=== PATIENT | female | born 1965 | race Hispanic/Latino ===

== ENCOUNTER → 2018-04-02 | Outpatient (CLI) | payer MEDICAID ==
[~2018-04-02] MED LIST: CYCL10 PO; DULO20 PO; HYDR-4068 PO; TRAM50TA4 PO; TRAZ-185 PO
== END | disposition home or self-care (01) ==
LOC: RAH 09:00
PROVIDERS: ATTEND Internal Medicine Gastroenterology
DX: B18.2 Chronic viral hepatitis C (principal); Z90.49 Acquired absence of other specified parts of digestive tract
CPT/HCPCS: 76700; 93975

== ENCOUNTER 2018-10-11 02:49 | Emergency (ER) | payer MEDICAID | END 2018-10-11 05:15 | disposition home or self-care (01) | LOC: EDH 02:49 | DX: S09.90XA Unspecified injury of head, initial encounter (principal); M06.9 Rheumatoid arthritis, unspecified; F31.9 Bipolar disorder, unspecified; F43.10 Post-traumatic stress disorder, unspecified; Z72.0 Tobacco use; W22.8XXA Striking against or struck by other objects, initial encounter; Y93.89 Activity, other specified; Y92.89 Other specified places as the place of occurrence of the external cause; Y99.8 Other external cause status | CPT/HCPCS: 70450 ==

== ENCOUNTER 2018-11-02 08:26 | Emergency (ER) | payer MEDICAID ==
[2018-11-02] MEDS ORDERED: CLINDAMYCIN HCL 150 MG CAP ONE (09:23)
[2018-11-02] MEDS ORDERED: ACETAMINOPHEN EXTRA STRENGTH 500 MG TABLET ONE (09:24)
== END 2018-11-02 09:48 | disposition home or self-care (01) ==
LOC: EDH 08:26
DX: L03.115 Cellulitis of right lower limb (principal); F32.9 Major depressive disorder, single episode, unspecified; M19.90 Unspecified osteoarthritis, unspecified site; Z72.0 Tobacco use
CPT/HCPCS: 73630